=== PATIENT | female | born 1970 | race Two or more races ===

== ENCOUNTER 2017-01-07 07:29 | Day surgery (SDC) | payer MEDICAID ==
[2017-01-07] VITALS (12 sets, daily range): BP systolic 119–154; BP diastolic 67–79; PULSE 57–73; RESP 14–20; Ht 149.9 cm; Wt 54.0 kg
[~2017-01-07] VITALS: Ht 149.9 cm; Wt 54.0 kg
[~2017-01-07 07:29] MED LIST: DEXAMETHASONE 4 MG/ML 1 ML INJ ONE; ONDANSETRON 4 MG INJ ONE
[2017-01-07] MEDS ORDERED: SOD CHLORIDE 0.9% 1,000 ML IV SCH (09:00)
[2017-01-07] MEDS ORDERED: CEFAZOLIN 1 GM/50 ML (PMX) 50 ML IVPB SCH (09:00)
[2017-01-07 10:14] LABS: ADD SCAN DIFF NO
[2017-01-07 10:17] LABS: BASOPHILS % 0.4 % (0.0-2.0); EOSINOPHILS % 0.4 % (0.0-7.0); HEMOGLOBIN 13.5 g/dl (12.0-16.0); LYMPHOCYTES # 1.8 10^3/ul (0.8-2.9); LYMPHOCYTES % 19.7 % (15.0-51.0); MEAN CORPUSCULAR HEMOGLOBIN 28.8 pg (29.0-33.0); MEAN CORPUSCULAR HGB CONC 33.8 g/dl (32.0-37.0); MEAN CORPUSCULAR VOLUME 85.5 fl (82.0-101.0); MEAN PLATELET VOLUME 11.3 fl (7.4-10.4); MONOCYTE # 0.8 10^3/ul (0.3-0.9); MONOCYTES % 8.9 % (0.0-11.0); NEUTROPHIL # 6.4 10^3/ul (1.6-7.5); NEUTROPHILS % 70.2 % (39.0-77.0); PLATELET COUNT 233 10^3/UL (140-415); RED BLOOD COUNT 4.68 10^6/ul (4.20-5.40); WHITE BLOOD COUNT 9.1 10^3/ul (4.8-10.8)
[2017-01-07 10:32] LABS: ALBUMIN 4.2 g/dl (3.3-4.9)
[2017-01-07 10:33] LABS: POTASSIUM 3.7 mmol/L (3.5-5.1)
[2017-01-07 10:35] LABS: ALBUMIN/GLOBULIN RATIO 1.35; BILIRUBIN,INDIRECT 0.6 mg/dl (0-1.1); BILIRUBIN,TOTAL 0.6 mg/dl (0.2-1.3); INR 0.96; PROTIME 12.8 Sec (12.2-14.2); TOTAL PROTEIN 7.3 g/dl (6.1-8.1)
[2017-01-07 10:37] LABS: CALCIUM 9.3 mg/dl (8.4-10.2); CREATININE 0.55 mg/dl (0.44-1.00)
[2017-01-07 10:41] LABS: PARTIAL THROMBOPLASTIN TIME 24.2 Sec (25.0-35.0)
[2017-01-07] MEDS ORDERED: HYDROCODONE/APAP (7.5/325) TAB PO PRN (12:30)
[2017-01-07] MEDS ORDERED: PROPOFOL 60 ML ONE (12:53)
[2017-01-07] MEDS ORDERED: FENTAnyl 50 MCG/ML VIAL ONE (12:55)
[2017-01-07] MEDS ORDERED: BUPIVACAINE 0.5%/EPI (SDV) 30 ML INJ ONE (13:07)
[2017-01-07] MEDS ORDERED: CEFAZOLIN 1 GM INJ ONE (13:17)
[2017-01-07] MEDS ORDERED: FENTAnyl 50 MCG/ML VIAL IV PRN ×2 (13:30)
[2017-01-07] MEDS ORDERED: DIPHENHYDRAMINE 50 MG INJ IV PRN (13:30)
[2017-01-07] MEDS ORDERED: hydrALAzine 20 MG INJ IV PRN (13:30)
[2017-01-07] MEDS ORDERED: EPHEDrine SULFATE 50 MG/5 ML SYG IV PRN (13:30)
[2017-01-07] MEDS ORDERED: ONDANSETRON 4 MG INJ IV PRN (13:30)
[2017-01-07] MEDS ORDERED: LABETALOL HCL 20MG INJ IV PRN (13:30)
[2017-01-07] MEDS ORDERED: MEPERIDINE 25 MG INJ IV PRN (13:30)
[2017-01-07] MEDS: FENTAnyl 50 MCG/ML VIAL IV PRN ×3 (14:09→14:25)
--- NOTE | 2017-01-10 15:31 | OPR ---
DATE OF OPERATION: 01/07/2017 PREOPERATIVE DIAGNOSIS: Left breast lesion. POSTOPERATIVE DIAGNOSIS: Left breast lesion. PROCEDURE PERFORMED: Needle-directed excisional biopsy. SURGEON: Nicholas Gallagher MD CONTROLLER MECHANIC: None. INDICATIONS FOR PROCEDURE: The patient is a 46-year-old female who underwent surveillance mammograp hy and was found to have a suspicious lesion in the left subareolar location. Core biopsy revealed atypical cells. She was counseled as to need for needle-directed excisional biopsy. She consented and was scheduled for surgery. DESCRIPTION OF PROCEDURE: On the morning of surgery, the patient presented to [facility] where she underwent localization of the lesion performed by attending radiologis t, Dr. Matilda Sharma. Subsequently, she was brought to the operating theater, placed under genera l anesthesia. The left breast was prepped and draped in the usual sterile fashion. A periareolar i ncision was then made from the 12 o'clock location to the 9 o'clock location to the 6 o'clock locati on. Subcutaneous tissue was dissected with cautery. The skin edges were then elevated with skin ho oks and wide circumferential dissection of the tissue associated with the wire took place. Specimen was removed and sent for permanent pathologic analysis. The wound was then irrigated. Minimal ble eding was controlled with cautery. The skin was reapproximated with 4-0 Vicryl suture in subcuticul ar fashion and Dermabond was applied. The patient tolerated the procedure well. The estimated bloo d loss was approximately 10 mL. There were no complications and the patient was transported in stab le condition to the recovery room. Dictated By: NICHOLAS GALLAGHER MD TL/KACEY Conf#: [id number] DID#: [id number]
== END 2017-01-07 15:32 | disposition home or self-care (01) ==
LOC: SDS 07:29
PROVIDERS: ATTEND Surgery Surgical Oncology
DX: D05.12 Intraductal carcinoma in situ of left breast (principal)
CPT/HCPCS: 19120; 80053; 84703; 85025; 85610; 85730; 88307; J0690; J1100; J2405; J3010; Z7512; Z7610

== ENCOUNTER 2017-02-25 10:34 | Day surgery (SDC) | payer MEDICAID ==
[2017-02-25] VITALS (22 sets, daily range): BP systolic 95–153; BP diastolic 55–74; PULSE 64–92; RESP 10–23; Ht 152.4 cm; Wt 52.4 kg
[~2017-02-25] VITALS: Ht 152.4 cm; Wt 52.4 kg
[~2017-02-25 10:34] MED LIST changes: +CEFAZOLIN 1 GM INJ ONE; +CEFAZOLIN 2 GM/50 ML (PMX) 50 ML IVPB ONE; -DEXAMETHASONE 4 MG/ML 1 ML INJ ONE; -ONDANSETRON 4 MG INJ ONE; +SOD CHLORIDE 0.9% 1,000 ML IV ONE
[2017-02-25 11:52] LABS: ADD SCAN DIFF NO
[2017-02-25 12:08] LABS: BASOPHIL # 0.1 10^3/ul (0.0-0.1); EOSINOPHILS # 0.1 10^3/ul (0.0-0.5); EOSINOPHILS % 1.2 % (0.0-7.0); HEMATOCRIT 40.2 % (37.0-47.0); HEMOGLOBIN 13.3 g/dl (12.0-16.0); LYMPHOCYTES # 1.8 10^3/ul (0.8-2.9); LYMPHOCYTES % 35.3 % (15.0-51.0); MEAN CORPUSCULAR HEMOGLOBIN 28.9 pg (29.0-33.0); MEAN CORPUSCULAR HGB CONC 33.1 g/dl (32.0-37.0); MEAN CORPUSCULAR VOLUME 87.4 fl (82.0-101.0); MEAN PLATELET VOLUME 11.8 fl (7.4-10.4); MONOCYTE # 0.5 10^3/ul (0.3-0.9); NEUTROPHIL # 2.7 10^3/ul (1.6-7.5); NEUTROPHILS % 53.3 % (39.0-77.0); PLATELET COUNT 182 10^3/UL (140-415); RED CELL DISTRIBUTION WIDTH 13.6 % (11.5-14.5)
[2017-02-25 12:15] LABS: INR 0.92; PARTIAL THROMBOPLASTIN TIME 25.2 Sec (25.0-35.0); PROTIME 12.4 Sec (12.2-14.2)
[2017-02-25 12:24] LABS: ALBUMIN 4.8 g/dl (3.3-4.9); ALBUMIN/GLOBULIN RATIO 1.92; BILIRUBIN,INDIRECT 0.7 mg/dl (0-1.1); BILIRUBIN,TOTAL 0.7 mg/dl (0.2-1.3); TOTAL PROTEIN 7.3 g/dl (6.1-8.1)
[2017-02-25 12:41] LABS: CALCIUM 9.4 mg/dl (8.4-10.2); CREATININE 0.7 mg/dl (0.44-1.00); POTASSIUM 4.2 mmol/L (3.5-5.1)
[2017-02-25] MEDS ORDERED: PROPOFOL 20 ML ONE (13:54)
[2017-02-25] MEDS ORDERED: MIDAZOLAM 1 MG/ML 2 ML INJ ONE (13:54)
[2017-02-25] MEDS ORDERED: FENTAnyl 50 MCG/ML VIAL ONE (13:54)
[2017-02-25] MEDS ORDERED: ONDANSETRON 4 MG INJ ONE (14:04)
[2017-02-25] MEDS ORDERED: DEXAMETHASONE 4 MG/ML 1 ML INJ ONE (14:04)
[2017-02-25] MEDS ORDERED: KETOROLAC 30 MG INJ ONE (14:22)
[2017-02-25] MEDS ORDERED: ACETAMINOPHEN 1000MG/100ML IV 100 ML ONE (14:22)
[2017-02-25] MEDS ORDERED: HYDROmorphONE (0.2 MG/ML) 10ML SYG IV PRN (15:00)
[2017-02-25] MEDS ORDERED: ONDANSETRON 4 MG INJ IV PRN (15:00)
[2017-02-25] MEDS ORDERED: MIDAZOLAM 1 MG/ML 2 ML INJ IV PRN (15:00)
[2017-02-25] MEDS ORDERED: FENTAnyl 50 MCG/ML VIAL IV PRN (15:00)
[2017-02-25] MEDS ORDERED: DIPHENHYDRAMINE 50 MG INJ IV PRN (15:00)
[2017-02-25] MEDS: FENTAnyl 50 MCG/ML VIAL IV PRN ×2 (15:16→15:26)
[2017-02-25] MEDS: HYDROmorphONE (0.2 MG/ML) 10ML SYG IV PRN ×4 (15:53→16:45)
[2017-02-25] MEDS ORDERED: HYDROCODONE/APAP (10/325) TAB PO ONE (17:00)
--- NOTE | 2017-02-25 20:21 | OPR ---
DATE OF OPERATION: 02/25/2017 PREOPERATIVE DIAGNOSIS: Ductal carcinoma in situ, left breast, need for reexcision partial mastecto my with resection of the nipple areolar complex. POSTOPERATIVE DIAGNOSIS: Ductal carcinoma in situ, left breast, need for reexcision partial mastect liza with resection of the nipple areolar complex. OPERATION PERFORMED: Left reexcision partial mastectomy with resection of the nipple areolar comple x and local breast flap advancement with closure. ANESTHESIOLOGIST: Nurse accounts payables clerk Humera Hilton. SURGEON: Nicholas Gallagher MD HOME APPLIANCE TECHNICIAN: Mj Romero MD INDICATIONS FOR PROCEDURE: The patient is a 46-year-old female who underwent surveillance mammograp hy and found to have of suspicious microcalcifications in the left subareolar region. A subsequent needle-directed excisional biopsy revealed extensive DCIS with inadequate margins circumferentially. The patient was counseled and told that with the extent of disease, preservation of the nipple was not possible and the recommendation was for mastectomy; however, the patient was very motivated to save her breasts and requested reexcision with resection of the nipple areolar complex. She consent ed and was scheduled for surgery. DESCRIPTION OF PROCEDURE: The patient was brought to the operating theater, placed under general an esthesia. The left breast was prepped and draped in usual sterile fashion. An elliptical incision around the nipple areolar complex was demarcated with marking pen and carried out with 15 blade scal pel. Subcutaneous tissue was dissected with cautery. The skin edges were then elevated with skin h ooks and wide circumferential dissection of the previous biopsy cavity then took place, taking great care not to enter the cavity. Specimen was then elevated, transected, and sent for permanent patho logic analysis. The wound was irrigated. Minimal bleeding was controlled with cautery. Due to the large defects, Dr. Gallahger made the decision to mobilize additional breast tissue and rotate the supe rior and inferior flap of breast tissue together. This was done using cautery. The flaps were then rotated together and sequential closure then took place with 4-0 Vicryl sutures in interrupted fash ion. Final skin approximation took place with 4-0 Vicryl in deep dermal fashion and followed by 4-0 Vicry l sutures in subcuticular fashion and Dermabond was applied. The patient tolerated procedure well. Estimated blood loss was 20 mL. There were no complications and the patient was transported in sta ble condition to the recovery room where circumferential compression dressing was applied. Dictated By: NICHOLAS LAWS/KACEY Conf#: [id number] DID#: [id number]
== END 2017-02-25 17:54 | disposition home or self-care (01) ==
LOC: SDS 10:34
PROVIDERS: ATTEND Surgery Surgical Oncology
DX: D05.12 Intraductal carcinoma in situ of left breast (principal); N60.12 Diffuse cystic mastopathy of left breast; R10.9 Unspecified abdominal pain
CPT/HCPCS: 19301; 80053; 85025; 85610; 85730; 88307; J0131; J0690; J1100; J1170; J1885; J2250; J2405; J3010; Z7512; Z7610

== ENCOUNTER 2019-03-30 07:08 | Day surgery (SDC) | payer MEDICAID ==
--- NOTE | 2019-03-11 16:32 | RADRPT ---
Vent Rate: 64 bpm RR Interval: 940 msec AL Interval: 157 msec QRS Duration: 83 msec QT Interval: 406 msec QTC Interval: 419 msec P-R-T [place]: 63 - 54 - 58 degrees Sinus rhythm...normal P axis, V-rate 50- 99 Electronically Signed By: Daren Schmidt
[2019-03-27 11:44] VITALS: BMI 23.1
[2019-03-30] VITALS (11 sets, daily range): BP systolic 83–122; BP diastolic 41–59; PULSE 62–82; RESP 10–20; Ht 152.4 cm; Wt 53.8 kg
[~2019-03-30] VITALS: Ht 152.4 cm; Wt 53.8 kg
[~2019-03-30 07:08] MED LIST changes: -CEFAZOLIN 1 GM INJ ONE; +NOL20 PO; -SOD CHLORIDE 0.9% 1,000 ML IV ONE
[2019-03-30] MEDS: SOD CHLORIDE 0.9% 1,000 ML IV SCH ×2 (08:19→11:23)
--- NOTE | 2019-03-30 09:04 | PREAC ---
Date/Time of Note Date/Time of Note DATE: 03/30/19 TIME: 09:03 Anesthesia Eval and Record Evaluation Time Pre-Procedure Interview DATE: 03/30/19 TIME: 09:03 Age 48 Sex female NPO: 8 hrs Preoperative diagnosis right breast mass Planned procedure excision of right breast mass Past Medical History Past Medical History: None Surgery & Anesthesia Issues No known issue Meds Anticoagulation: No Beta Elisa within 24 hr: No Reason Beta Elisa not given: Pt. not on B-Elisa Reported Medications Tamoxifen Citrate* (Tamoxifen Citrate*) 20 Mg Tab, 20 MG PO DAILY, TAB 03/30/19 Current Medications Sodium Chloride 1,000 ml @ 75 mls/hr [id number] IV Last administered on 03/30/19at 08:19; Admin Dose 75 MLS/HR; Start 03/30/19 at 06:00; Stop 03/30/19 at 23:00 Meds reviewed: Yes Allergies Coded Allergies: No Known Allergy (Unverified , 03/30/19) Allergies Reviewed: Yes Labs/Studies Labs Reviewed: Reviewed by anesthesiologist Result Diagram: 03/27/19 1118 03/27/19 1118 test: Negative Pre-procedure Exam Last vitals Vital Signs Date Temp Pulse Resp B/P (MAP) Pulse Ox O2 O2 Flow FiO2 Time Delivery Rate 03/30/19 96.9 66 16 101/55 100 Room Air 08:13 (70) Airway: Adequate mouth opening, Adequate thyromental dist Mallampati: Mallampati I Teeth: Normal Lung: Normal Heart: Normal ASA Physical Status ASA physical status: 1 Emergency: None Planned Anesthetic General/MAC: LMA Planned Pain Management Parenteral pain med Pre-operative Attestations Prior to commencing anesthesia and surgery, the patient was re-evaluated, there was verification of: *The patient's identity *The results of appropriate recent lab work and preoperative vital signs *The above evaluation not changing prior to induction *Anesthetic plan, risk benefits, alternative and complications discussed with patient/family; questions answered; patient/family understands, accepts and wishes to proceed. NAN HATHAWAY Mar 30, 2019 09:04
[2019-03-30] MEDS ORDERED: PROPOFOL 100 ML ONE (09:33)
[2019-03-30] MEDS ORDERED: LIDOCAINE 2% (SDV) 5 ML INJ ONE (09:34)
[2019-03-30] MEDS ORDERED: CEFAZOLIN 1 GM INJ ONE (09:35)
[2019-03-30] MEDS ORDERED: BUPIVACAINE 0.5%/EPI (SDV) 30 ML INJ ONE (09:57)
[2019-03-30] MEDS ORDERED: DEXAMETHASONE 4 MG/ML 5 ML INJ ONE ×2 (10:14→10:20)
[2019-03-30] MEDS ORDERED: ONDANSETRON 4 MG INJ ONE (10:14)
--- NOTE | 2019-03-30 10:47 | SIPON ---
Date/Time of Note Date/Time of Note DATE: 03/30/19 TIME: 10:46 Operative Report Preoperative Diagnosis Right breast mass Postoperative Diagnosis Same Operation/Procedure Performed Excision of right breast mass Surgeon see signature line training program assistant None Anesthesia: general Estimated blood loss: 0 - 10 ml's Transfusion Required none Specimen Right breast mass and overlying skin Grafts/Implants none Complications none MANISHA BELLA MD Mar 30, 2019 10:47
--- NOTE | 2019-03-30 10:50 | PAC ---
Date/Time of Note Date/Time of Note DATE: 03/30/19 TIME: 10:49 Post-Anesthesia Notes Post-Anesthesia Note Last documented vital signs Vital Signs Date Temp Pulse Resp B/P (MAP) Pulse Ox O2 O2 Flow FiO2 Time Delivery Rate 03/30/19 96.9 66 16 101/55 100 Room Air 1049 (70) Activity: WNL Respiratory function: WNL Cardiovascular function: WNL Mental status: Baseline Pain reasonably controlled: Yes Hydration appropriate: Yes Nausea/Vomiting absent: Yes NAN HATHAWAY Mar 30, 2019 10:50
[2019-03-30] MEDS ORDERED: KETOROLAC 30 MG INJ IV PRN (11:00)
[2019-03-30] MEDS ORDERED: ONDANSETRON 4 MG INJ IV PRN (11:00)
[2019-03-30] MEDS ORDERED: LABETALOL HCL 20MG INJ IV PRN (11:00)
[2019-03-30] MEDS ORDERED: MEPERIDINE 25 MG INJ IV PRN (11:00)
[2019-03-30] MEDS ORDERED: hydrALAzine 20 MG INJ IV PRN (11:00)
[2019-03-30] MEDS ORDERED: EPHEDrine 25 MG/5 ML SYG IV PRN (11:00)
[2019-03-30] MEDS ORDERED: OXYCODONE/ACETAMINOPHEN (5/325) TAB PO PRN ×2 (11:00)
[2019-03-30] MEDS ORDERED: ALBUTEROL 0.083% (NEB) 2.5 MG/3 ML AMP HHN PRN (11:00)
[2019-03-30] MEDS ORDERED: ALBUMIN HUMAN 5% 250 ML IV PRN (11:00)
[2019-03-30] MEDS ORDERED: DIPHENHYDRAMINE 50 MG INJ IV PRN (11:00)
[2019-03-30] MEDS ORDERED: FENTAnyl 50 MCG/ML VIAL IV PRN ×3 (11:00)
--- NOTE | 2019-03-30 14:39 | OPR ---
DATE OF OPERATION: 03/30/2019 PREOPERATIVE DIAGNOSIS: Right breast mass. POSTOPERATIVE DIAGNOSIS: Right breast mass. PROCEDURE PERFORMED: Excision of right breast mass. ANESTHESIA: General. ANESTHESIOLOGIST: Dr. Cummins. SURGEON: Nicholas Gallagher MD. WELDER REPAIR: None. INDICATIONS FOR PROCEDURE: The patient is a 48-year-old female who presented with a palpable mass in the right breast at the 1 o'clock location. Radiographically, it appeared to be benign, likely usman gn cystic mass; however, she wished for excision. She consented and was scheduled for surgery. DESCRIPTION OF PROCEDURE: The patient was brought to the operating theater, placed under general ane sthesia. The right breast was prepped and draped in usual sterile fashion. An elliptical incision w as made around the visually obvious mass with a 15 blade scalpel. Subcutaneous tissue was then sharp ly dissected. The specimen including the overlying skin was then excised and sent for permanent path ologic analysis. The wound was irrigated. Residual bleeding was controlled with cautery and the are a was then infiltrated with 0.5% Marcaine local anesthetic with epinephrine. The skin was then reapp roximated with 5-0 PDS sutures in subcuticular fashion and Dermabond was applied. The patient tolera cici procedure well. Estimated blood loss was 5 mL. There were no complications and the patient was transported in stable condition to the recovery room. Dictated By: NICHOLAS LAWS/KACEY Conf#: [id number] DID#: [id number]
== END 2019-03-30 14:12 | disposition home or self-care (01) ==
LOC: SDS 07:08
PROVIDERS: ATTEND Surgery Surgical Oncology
DX: N63.0 Unspecified lump in unspecified breast (principal)
CPT/HCPCS: 19120; 71045; 80053; 84703; 85025; 85610; 85730; 88307; 93005; J0690; J1100; J2405; J3010; Z7512; Z7610